=== PATIENT | male | born 1965 | race Caucasian/White ===

== ENCOUNTER → 2017-02-17 | Outpatient (CLI) | payer OTHER | LOC: RAD 10:56 | PROVIDERS: ATTEND Family Medicine | DX: M25.512 Pain in left shoulder (principal) ==

== ENCOUNTER 2018-02-07 13:17 | Day surgery (SDC) | payer OTHER ==
[2018-02-01 10:42] LABS: HEMATOCRIT 43.3 % (37.9-51.0); MEAN CORPUSCULAR HEMOGLOBIN 31.4 pg (27.0-33.4); MEAN CORPUSCULAR HGB CONC 34.6 g/dL (32.0-36.0); MEAN CORPUSCULAR VOLUME 91 fl (80-97); PLATELET COUNT 232 10^3/uL (150-450); RED BLOOD COUNT 4.77 10^6/uL (4.35-5.55); RED CELL DISTRIBUTION WIDTH 14.1 % (11.5-14.0); WHITE BLOOD COUNT 5.1 10^3/uL (4.0-10.5)
--- NOTE | 2018-02-01 23:15 | EKG REPORT ---
SEVERITY:- NORMAL ECG - SINUS RHYTHM : Confirmed by: Conchita Chawla 01-Feb-2018 23:15:21
[~2018-02-07 13:17] MED LIST: ACETAMINOPHEN 325 MG TABLET PO PRN; CEFAZOLIN 1 GM/D5W RTU 1 GM/50 ML RTUPB IV PRN; LACTATED RINGERS 1000 ML IV PRN; SUCCINYLCHOLINE CHLORIDE INJ 200 MG/10 ML VIAL ONE
[2018-02-07] MEDS ORDERED: BUPIVACAINE HCL 0.25 % INJ/PF (2.5 MG/1 ML) 30 ML VIAL ONE (14:40)
[2018-02-07] MEDS ORDERED: BUPIVACAINE INJ/PF LIPOSOME/PF 266 MG/20 ML SDV ONE (14:40)
[2018-02-07] MEDS ORDERED: FENTANYL CITRATE INJ/PF 250 MCG/5 ML AMPULE ONE (15:21)
[2018-02-07] MEDS ORDERED: MIDAZOLAM 2 MG/2 ML INJ ONE (15:21)
[2018-02-07] MEDS ORDERED: DEXAMETHASONE SOD PHOSPHATE INJ 4 MG/1 ML VIAL ONE (15:22)
[2018-02-07] MEDS ORDERED: PROPOFOL INJ 200 MG/20 ML VIAL IV ONE (15:22)
[2018-02-07] MEDS ORDERED: ONDANSETRON HCL INJ/PF 4 MG/2 ML SDV ONE (15:22)
[2018-02-07] MEDS ORDERED: ACETAMINOPHEN 100 ML IV ONE (15:22)
[2018-02-07] MEDS ORDERED: FENTANYL CITRATE INJ/PF 100 MCG/2 ML AMPUL IV PRN ×3 (16:07)
[2018-02-07] MEDS ORDERED: OXYCODONE-ACETAMINOPHEN 5-325 MG TABLET PO PRN ×3 (16:07→17:13)
[2018-02-07] MEDS ORDERED: PROMETHAZINE HCL INJ 25 MG/1 ML VIAL IV PRN ×2 (16:07)
[2018-02-07] MEDS ORDERED: MEPERIDINE HCL/PF INJ 25 MG/1 ML DISP.SYRIN IV PRN (16:07)
[2018-02-07] MEDS ORDERED: DIPHENHYDRAMINE HCL 50 MG/ML VIAL IV PRN (16:07)
[2018-02-07] MEDS ORDERED: EPHEDRINE SULFATE INJ 50 MG/1 ML AMPULE ONE (16:24)
--- NOTE | 2018-02-07 17:13 | Discharge Summary ---
Discharge Summary (SDC) - Discharge Final Diagnosis: Left indirect inguinal hernia Date of Surgery: 02/07/18 Discharge Date: 02/07/18 Condition: Stable Treatment or Instructions: [facility] [address], [place] [address] Discharge Instructions: Open Abdominal Procedures (Hernia, Bowel Surgery) 1.General Information: a. DO NOT DRIVE a car or operative machinery for 1-2 weeks or as long as taking Narcotic pain medication. b. DO NOT consume alcohol, tranquilizers, sleeping medication, or any non- prescribed medication for 24 hours unless approved by your doctor or as long as taking pain medication. c. DO NOT make important decisions or sign any important papers for the first 24 hours after surgery. d. When discharged home the same day as surgery have a responsible person with you the first night. 2.Activity Restriction: 8 weeks; a. Avoid heavy lifting (> 10-15 lbs), straining abdominal muscles and sports, mowing lawn, vacuum vehicle and equipment cleaner and bending over a lot. b. Walking is important to avoid blood clots in the legs and deep breathing can prevent pneumonia. c. If it fine to go for walks, up and down steps, and ride in a car. 3.Treatment: a. You may shower in 24 hours. Leave skin glue intact, but you should not bathe in a tub or go swimming for 2 weeks. c. Do not use oils, powders, or lotion on your incision. 4.Medications: a. You may take narcotic prescription tablets for pain if needed, one every 6 hours (Toradol_). c. You may resume all normal medications unless a change is specified by your doctors. d. Antibiotic Therapy if needed ( NONE) ___ 5.Diet: a. If going home the same day as surgery start with clear liquids, and if you do well then advance to normal foods low inf fat and protein. Smaller portion size may be flowers the first night. b. When discharged after hospital stay you may resume a normal diet. 6.Notify Physician If: a. Pain is not relieved by pain medication b. Persistent nausea and vomiting c. Chills, fever (above 101) d. Persistent bleeding or swelling at the operative site e. Unable to urinate for 6-8 hours f. Increased redness, drainage, or foul smelling discharge from incision 7. Follow Up Care: a. Please call our office to schedule an appointment with your doctor for 2 weeks. In the event of any postoperative problems or questions you may call our office during business hours or the On-Call surgeon through the hobbing press operator at [facility]. [facility] [phone] [facility] [phone] (Ask for the surgeon associate professor of communication) b. I understand the instructions for my postoperative care as described above and a copy has been given to me. _ Witness Patient/Significant Other Date Prescriptions: Ketorolac Tromethamine [Toradol 10 mg Tablet] 10 mg PO Q6HP PRN #20 tablet PRN Reason: Discharge Diet: As Tolerated Discharge Activity: No Lifting Over 10 Pounds, Walk Frequently Report the Following to Your Physician Immediately: Nausea, Vomiting, Fever over 101 Degrees, Unusual Bleeding, Redness, Drainage-Foul Smelling
[2018-02-07] MEDS ORDERED: ONDANSETRON HCL INJ/PF 4 MG/2 ML SDV IV PRN (17:14)
--- NOTE | 2018-02-07 17:32 | Operative Report ---
Operative Report DATE OF SURGERY: 02/07/18 PREOPERATIVE DIAGNOSIS: Left inguinal hernia POSTOPERATIVE DIAGNOSIS: Same, indirect,dual component OPERATION: Left inguinal exploration, open, with herniorrhaphy using [facility] Ethicon Prolene hernia system SURGEON: KIYA GRAYSON 1ST SET ILLUSTRATOR: ALEE CASAREZ ANESTHESIA: GA TISSUE REMOVED OR ALTERED: None COMPLICATIONS: None ESTIMATED BLOOD LOSS: Scant INTRAOPERATIVE FINDINGS: See below PROCEDURE: The patient was seen in the preop holding area with a left inguinal area was marked. The patient was then taken to the main operating room and general anesthesia was induced. Left inguinal area abdomen previously clipped, was exposed, prepped and draped sterile fashion including the genitalia. Surgical plan surgical timeout conducted. Landmarks were identified, skin anesthetized with quarter percent Marcaine. A standard left inguinal herniorrhaphy incision was the #15 blade. Subcutaneous tissue and Tomer's fascia divided with electrocautery. The predictable, superficial vein was ligated and divided. The external oblique aponeurosis was anesthetized with quarter percent Marcaine, then open along the direction of its fibers. The ilioinguinal nerve was identified and spared throughout the entire dissection. Superior and inferior fascial flaps were elevated. Since of the inguinal canal were now interrogated mobilized and isolated. The patient was found to have 2 large lipomatous masses emanating from the lateral side of the inguinal canal. Cord structures including vas deferens and pampiniform plexus and associated vessels were surrounded with Jackeline drain. The fatty masses were isolated from each other and found to originate from the internal ring. The lateral mass was approximately 3 x 4 x 6 cm, consisting of retroperitoneal fat. More medial mass was a hernia, thin walled, consisting of peritoneum with relapsing fatty tissue. Both of these structures were able to be easily reduced into the retroperitoneum. There was no evidence of incarcerated bowel. This left us with a moderately enlarged deep internal ring. Again we were lateral to the inferior epigastric vessels. I used this pocket created by the prolapsing tissue, now reduced, to further develop the retroperitoneal Whitaker for deployment of the mesh. This was done bluntly and using a small sponge. Once a satisfactory pocket being created, we brought onto the field a non- [facility] large prosthetic mesh, deployed the inner component into the retroperitoneal space splaying it out in a circumferential fashion. The external component was now trimmed slightly to the appropriate configuration to re-create the floor of the inguinal canal. Using 0 PDS suture , the mesh was secured at approximately 8 points in circumferential fashion to the surrounding fascia including Poupart's ligament lacunar ligament and conjoined tendon. A U was created at the 12 o'clock position to accommodate the cord structures and the ilioinguinal nerve. At this time the patient began waking up and we had to wait until anesthesia got the patient back down satisfactorily. We closed the external oblique aponeurosis with 2-0 Vicryl, Tomer's fascia with 3-0 Vicryl skin with 3-0 Vicryl ,Dermabond glue. Tolerated procedure well, extubated, and taken recovery room in stable condition. The physician review assistant, Ms. Perez, provided assistance during this case by: Assisting retracting tissue, instillation of local anesthesia and closure of skin incisions.
[2018-02-07 19:45] VITALS: BP 147/101
== END 2018-02-07 19:40 | disposition home or self-care (01) ==
LOC: OROUT 13:17
PROVIDERS: ATTEND Surgery
DX: K40.90 Unilateral inguinal hernia, without obstruction or gangrene, not specified as recurrent (principal); I10 Essential (primary) hypertension; K21.9 Gastro-esophageal reflux disease without esophagitis; Z79.899 Other long term (current) drug therapy
CPT/HCPCS: 93005; 36415; 85027; 93010; 49505; C1781; J2250; J0690; J1100; J3490; J3010; J0330; J2405; J2704; J0131; C9290; 830

== ENCOUNTER 2019-04-15 09:34 | Emergency (ER) | payer OTHER ==
[2019-04-15] MEDS ORDERED: ONDANSETRON 4 MG TAB.RAPDIS PO ONE (10:05)
--- NOTE | 2019-04-15 10:05 | ER Document Report ---
ED Medical Screen (RME) - General Chief Complaint: Testicular Problem Stated Complaint: TESTICULAR PAIN Time Seen by Provider: 04/15/19 10:01 Mode of Arrival: Ambulatory Information source: Patient Notes: Patient presents complaining of left testicular swelling for the past year after having hernia surgery. Patient states that the swelling has gradually worsened over the past 2 to 3 weeks and has become painful. Patient does report nausea. No vomiting. Patient denies any urinary symptoms or penile discharge. Patient is concerned about a worsening of a hernia. I have greeted and performed a rapid initial assessment of this patient. A comprehensive ED assessment and evaluation of the patient, analysis of test results and completion of the medical decision making process will be conducted by additional ED providers. TRAVEL OUTSIDE OF THE [place] IN LAST 30 DAYS: No - Related Data Allergies/Adverse Reactions: No Known Allergies Allergy (Verified 04/15/19 09:37) Past Medical History - Past Medical History Cardiac Medical History: Reports: Hx Hypertension Denies: Hx Coronary Artery Disease, Hx Heart Attack Pulmonary Medical History: Denies: Hx Asthma, Hx Bronchitis, Hx COPD, Hx Pneumonia, Hx Tuberculosis Neurological Medical History: Denies: Hx Cerebrovascular Accident, Hx Seizures Musculoskeltal Medical History: Denies Hx Arthritis, Reports Hx Gout Past Surgical History: Reports: Hx Abdominal Surgery - Umbilical hernia repair, Hx Inguinal Hernia, Hx Umbilical Hernia - Immunizations Hx Diphtheria, Pertussis, Tetanus Vaccination: Yes History of Influenza Vaccine for 07/2017 - 12/2017 Season: No Physical Exam - Vital signs Vitals: Temp Pulse Resp BP Pulse Ox 97.8 F 65 16 144/86 H 96 04/15/19 09:42 04/15/19 09:42 04/15/19 09:42 04/15/19 09:42 04/15/19 09:42 - General General appearance: Appears well, Alert In distress: None - Abdominal Tenderness: Nontender Course - Vital Signs Vital signs: Temp Pulse Resp BP Pulse Ox 97.8 F 65 16 144/86 H 96 04/15/19 09:42 04/15/19 09:42 04/15/19 09:42 04/15/19 09:42 04/15/19 09:42
[2019-04-15 10:47] LABS: ABSOLUTE BASOPHILS # (AUTO) 0.1 10^3/uL (0.0-0.2); ABSOLUTE EOSINOPHILS # (AUTO) 0.1 10^3/uL (0.0-0.6); ABSOLUTE LYMPHOCYTES (AUTO) 1.5 10^3/uL (0.5-4.7); ABSOLUTE MONOCYTES (AUTO) 0.4 10^3/uL (0.1-1.4); BASOPHILS % (AUTO) 1.1 % (0-2); EOSINOPHILS % (AUTO) 1.5 % (0-6); HEMATOCRIT 39.2 % (37.9-51.0); HEMOGLOBIN 13.7 g/dL (13.5-17.0); LYMPHOCYTES % (AUTO) 29.7 % (13-45); MEAN CORPUSCULAR HEMOGLOBIN 31.3 pg (27.0-33.4); MEAN CORPUSCULAR HGB CONC 34.9 g/dL (32.0-36.0); MEAN CORPUSCULAR VOLUME 90 fl (80-97); MONOCYTES % (AUTO) 8.3 % (3-13); PLATELET COUNT 200 10^3/uL (150-450); RED BLOOD COUNT 4.37 10^6/uL (4.35-5.55); SEGMENTED NEUTROPHILS % (AUTO) 59.4 % (42-78); TOTAL CELLS COUNTED % (AUTO) 100 %
[2019-04-15 11:05] LABS: APPEARANCE,URINE CLEAR; BILIRUBIN,URINE NEGATIVE (NEGATIVE); COLOR,URINE YELLOW; GLUCOSE, URINE NEGATIVE (NEGATIVE); KETONES,URINE NEGATIVE (NEGATIVE); LEUKOCYTE ESTERASE,URINE NEGATIVE (NEGATIVE); NITRITE,URINE NEGATIVE (NEGATIVE); PROTEIN,URINE NEGATIVE (NEGATIVE); URINE SPECIFIC GRAVITY 1.025; UROBILINOGEN,URINE NEGATIVE mg/dL (<2.0)
[2019-04-15 11:06] LABS: ALANINE AMINOTRANSFERASE 82 U/L (21-72); ALBUMIN 4.5 g/dL (3.5-5.0); ALKALINE PHOSPHATASE 70 U/L (38-126); ANION GAP 9 (5-19); ASPARTATE AMINO TRANSFERASE 47 U/L (17-59); BILIRUBIN,DIRECT 0.4 mg/dL (0.0-0.4); BILIRUBIN,TOTAL 0.6 mg/dL (0.2-1.3); BLOOD UREA NITROGEN 17 mg/dL (7-20); CALCIUM 9.5 mg/dL (8.4-10.2); CARBON DIOXIDE 25 mmol/L (22-30); CHLORIDE 106 mmol/L (98-107); GLUCOSE 106 mg/dL (75-110); POTASSIUM 4.6 mmol/L (3.6-5.0); SODIUM 139.9 mmol/L (137-145); TOTAL PROTEIN 7.3 g/dL (6.3-8.2)
--- NOTE | 2019-04-15 12:44 | RADIOLOGY REPORT (SQ) ---
EXAM DESCRIPTION: U/S SCROTUM W/DOPPLER COMPLETED DATE/TIME: 04/15/2019 12:24 pm REASON FOR STUDY: left testicular pain,swelling COMPARISON: 03/11/2015 TECHNIQUE: Static and realtime eldridge scale imaging of the scrotum and testes. Selected color Doppler and spectral images recorded to document blood flow. LIMITATIONS: None. FINDINGS: RIGHT: TESTICLE: Normal size, 4.3 x 3.3 x 3 cm. Normal echotexture. Normal blood flow. No mass. EPIDIDYMIS: Normal, 13 mm. HYDROCELE OR VARICOCELE: Small hydrocele. HERNIA OR EXTRA-TESTICULAR MASS: No. OTHER: No other significant finding. LEFT: TESTICLE: Normal size, 5.1 x 3 x 3.5 cm. Normal echotexture. Normal blood flow. No mass. EPIDIDYMIS: Poorly seen. HYDROCELE OR VARICOCELE: Large left hydrocele, 11.5 x 5.7 x 6.4 cm. HERNIA OR EXTRA-TESTICULAR MASS: No. OTHER: No other significant finding. IMPRESSION: Large left hydrocele. Small right hydrocele. Left epididymis is poorly seen because of the large hydrocele on the left. TECHNICAL DOCUMENTATION: JOB ID: [id number] [employer]- All Rights Reserved Reading location - IP/workstation name: [email or web address]
[2019-04-15 13:21] VITALS: BP 118/80
[2019-04-15 13:34] LABS: CHLAM PCR NOT DETECTED (NOT DETECT)
--- NOTE | 2019-04-17 23:08 | ER Document Report ---
Entered by LATOSHA STEVENS SCRIBE 04/15/19 1246 Acting as scribe for:NAYAN SANTIAGO MD ED General - General Chief Complaint: Testicular Problem Stated Complaint: TESTICULAR PAIN Time Seen by Provider: 04/15/19 10:01 Primary Care Provider: [facility] [Provider Group] - 04/15/19 (Call today to schedule an appointment in the next several days.) [facility] [[facility] - Follow up as needed Mode of Arrival: Ambulatory Notes: Patient is a 53-year-old male presenting to the emergency department complaining of testicular swelling. Patient states that he has had swelling for a year now but that it has gotten excessively worse the past few weeks. Patient states that the inflammation is mainly of his left testicle, but his right is also swelling. TRAVEL OUTSIDE OF THE [place] IN LAST 30 DAYS: No - Related Data Allergies/Adverse Reactions: No Known Allergies Allergy (Verified 04/15/19 09:37) Past Medical History - General Information source: Patient - Social History Smoking Status: Never Smoker Cigarette use (# per day): No Chew tobacco use (# tins/day): No Frequency of alcohol use: Rare Drug Abuse: None Family History: Reviewed & Not Pertinent Patient has suicidal ideation: No Patient has homicidal ideation: No - Past Medical History Cardiac Medical History: Reports: Hx Hypertension GI Medical History: Reports: Hx Gastroesophageal Reflux Disease Musculoskeletal Medical History: Reports Hx Gout Past Surgical History: Reports: Hx Abdominal Surgery - Umbilical hernia repair, Hx Inguinal Hernia, Hx Umbilical Hernia - Immunizations Hx Diphtheria, Pertussis, Tetanus Vaccination: Yes Review of Systems - Review of Systems Constitutional: No symptoms reported EENT: No symptoms reported Cardiovascular: No symptoms reported Respiratory: No symptoms reported Gastrointestinal: No symptoms reported Genitourinary: No symptoms reported Male Genitourinary: See HPI, Testicular pain Musculoskeletal: No symptoms reported Skin: No symptoms reported Hematologic/Lymphatic: No symptoms reported Neurological/Psychological: No symptoms reported -: Yes All other systems reviewed and negative Physical Exam - Vital signs Vitals: Temp Pulse Resp BP Pulse Ox 97.8 F 65 16 144/86 H 96 04/15/19 09:42 04/15/19 09:42 04/15/19 09:42 04/15/19 09:42 04/15/19 09:42 - Notes Notes: PHYSICAL EXAMINATION: GENERAL: Well-appearing, well-nourished and in no acute distress. HEAD: Atraumatic, normocephalic. EYES: Pupils equal round and reactive to light, extraocular movements intact, sclera anicteric, conjunctiva are normal. ENT: nares patent, oropharynx clear without exudates. Moist mucous membranes. NECK: Normal range of motion, supple without lymphadenopathy LUNGS: Breath sounds clear to auscultation bilaterally and equal. No wheezes rales or rhonchi. HEART: Regular rate and rhythm without murmurs ABDOMEN: Soft, nontender, normoactive bowel sounds. No guarding, no rebound. No masses appreciated. GENITALS: Large left hemiscrotal swelling, firmness, tender, no skin induration noted. Physical exam is consistent with the ultrasound showing a large left hydrocele. EXTREMITIES: Normal range of motion, no pitting or edema. No cyanosis. NEUROLOGICAL: Cranial nerves grossly intact. Normal speech, normal gait. Normal sensory, motor, and reflex exams. PSYCH: Normal mood, normal affect. SKIN: Warm, Dry, normal turgor, no rashes or lesions noted. Course - Vital Signs Vital signs: Temp Pulse Resp BP Pulse Ox 98.0 F 66 16 118/80 100 04/15/19 13:20 04/15/19 13:20 04/15/19 13:20 04/15/19 13:20 04/15/19 13:20 - Laboratory Result Diagrams: 04/15/19 10:14 04/15/19 10:14 Laboratory results interpreted by me: 04/15/19 10:14 ALT 82 H - Diagnostic Test Radiology reviewed: Image reviewed, Reports reviewed - Scrotal ultrasound shows a small right hydrocele. A very large left hydrocele that obscures the left epididymis. Discharge - Discharge Clinical Impression: Left hydrocele, Acute pain in scrotum Condition: Stable Disposition: HOME, SELF-CARE Additional Instructions: Hydrocele You have been diagnosed as having a hydrocele. The sac that holds the testicles is called the scrotum. A hydrocele is usually a painless collection of fluid in the membrane that covers the testicle(s). This may be present at or develop later on in life. The cause is usually unknown. In infants a hydrocele can be due to a miscommunication of the fluid surrounding the testes. In adults a hydrocele may form due to injury or inflammation of surrounding structures. Most hydroceles require no treatment, and usually resolve on their own. However, sometimes surgical intervention is recommended for recurrent, or for unusually large hydroceles. The surgery to fix a hydrocele is a minor procedure and usually takes about 1 and 1/2 hours. Take medications as prescribed. Continue taking your regular medications, including the meloxicam. Use good scrotal support. Try soaking in warm water a few times daily. Avoid prolonged standing, walking, and any heavy lifting or straining. Call [facility] today to schedule an appointment in the office for surgical consultation. RETURN TO THE EMERGENCY ROOM IF ANY NEW OR WORSENING SYMPTOMS. Prescriptions: Doxycycline Hyclate 100 mg PO BID #20 tablet. Oxycodone HCl/Acetaminophen [Percocet 5-325 mg Tablet] 1 tab PO ASDIR PRN #15 tablet PRN Reason: Referrals: [facility] [Primary [facility]] - Follow up as needed [facility] [Provider Group] - 04/15/19 (Call today to schedule an appointment in the next several days.) Scribe Attestation: 04/15/19 12:46 I personally performed the services described in the documentation, reviewed and edited the documentation which was dictated to the scribe in my presence, and it accurately records my words and actions. I personally performed the services described in the documentation, reviewed and edited the documentation which was dictated to the scribe in my presence, and it accurately records my words and actions.
== END 2019-04-15 13:21 | disposition home or self-care (01) ==
LOC: ER 09:34
DX: N50.82 Scrotal pain (principal); N43.3 Hydrocele, unspecified; N50.89 Other specified disorders of the male genital organs; I10 Essential (primary) hypertension; K21.9 Gastro-esophageal reflux disease without esophagitis
CPT/HCPCS: 99284; 36415; 85025; 80053; 81001; 87491; 87591; 76870; 93976; S0119

== ENCOUNTER 2019-06-13 22:31 | Emergency (ER) | payer OTHER ==
--- NOTE | 2019-06-14 01:09 | ER Document Report ---
ED Medical Screen (RME) - General Chief Complaint: Abdominal Problem Stated Complaint: POST SURGICAL PROBLEM Time Seen by Provider: 06/14/19 00:57 Primary Care Provider: [facility]WAB[facility] [Primary Care Provider] - Follow up as needed Mode of Arrival: Ambulatory Information source: Patient Notes: 53-year-old male presented to ED for complaint of left inguinal pain. He states he has had inguinal hernia repairs several times last time with mesh. He states when the pain started somewhat could hear it pop at the time. He states he has had bulges in the past but does not have one at this time. Patient is alert oriented respirations regular and unlabored speaking in full sentences. He states he always has a lot of pain. I have greeted and performed a rapid initial assessment of this patient. A comprehensive ED assessment and evaluation of the patient, analysis of test results and completion of medical decision making process will be conducted by an additional ED providers. TRAVEL OUTSIDE OF THE [place] IN LAST 30 DAYS: No - Related Data Allergies/Adverse Reactions: No Known Allergies Allergy (Verified 06/14/19 00:59) Past Medical History - Social History Chew tobacco use (# tins/day): No Frequency of alcohol use: Occasional Drug Abuse: None - Past Medical History Cardiac Medical History: Reports: Hx Hypertension Pulmonary Medical History: Reports: None EENT Medical History: Reports: None Neurological Medical History: Reports: None Endocrine Medical History: Reports: None Renal/ Medical History: Reports: None Malignancy Medical History: Reports None GI Medical History: Reports: Hx Gastroesophageal Reflux Disease, Other - Previous inguinal hernia repairs Musculoskeltal Medical History: Reports Hx Gout, Reports Hx Musculoskeletal Deformity, Reports Hx Musculoskeletal Trauma Skin Medical History: Reports None Psychiatric Medical History: Reports: None Traumatic Medical History: Reports: None Infectious Medical History: Reports: None Past Surgical History: Reports: Hx Abdominal Surgery - Umbilical hernia repair, Hx Inguinal Hernia, Hx Orthopedic Surgery - Neck surgery for disc, Hx Umbilical Hernia - Immunizations Hx Diphtheria, Pertussis, Tetanus Vaccination: Yes History of Influenza Vaccine for 07/2017 - 12/2017 Season: No Physical Exam - Vital signs Vitals: Temp Pulse Resp BP Pulse Ox 98.0 F 73 18 167/79 H 96 06/13/19 22:36 06/13/19 22:36 06/13/19 22:36 06/13/19 22:36 06/13/19 22:36 Course - Vital Signs Vital signs: Temp Pulse Resp BP Pulse Ox 98.0 F 73 18 167/79 H 96 06/13/19 22:36 06/13/19 22:36 06/13/19 22:36 06/13/19 22:36 06/13/19 22:36 Doctor's Discharge - Discharge Referrals: [facility] [[facility]] - Follow up as needed
[2019-06-14 01:25] LABS: ABSOLUTE BASOPHILS # (AUTO) 0.1 10^3/uL (0.0-0.2); ABSOLUTE EOSINOPHILS # (AUTO) 0.1 10^3/uL (0.0-0.6); ABSOLUTE LYMPHOCYTES (AUTO) 2.3 10^3/uL (0.5-4.7); ABSOLUTE MONOCYTES (AUTO) 0.5 10^3/uL (0.1-1.4); ABSOLUTE NEUT (AUTO) 3.6 10^3/uL (1.7-8.2); BASOPHILS % (AUTO) 1.1 % (0-2); EOSINOPHILS % (AUTO) 1.7 % (0-6); HEMATOCRIT 37.9 % (37.9-51.0); HEMOGLOBIN 13.1 g/dL (13.5-17.0); LYMPHOCYTES % (AUTO) 34.3 % (13-45); MEAN CORPUSCULAR HEMOGLOBIN 31.4 pg (27.0-33.4); MEAN CORPUSCULAR HGB CONC 34.5 g/dL (32.0-36.0); MEAN CORPUSCULAR VOLUME 91 fl (80-97); PLATELET COUNT 201 10^3/uL (150-450); RED BLOOD COUNT 4.17 10^6/uL (4.35-5.55); RED CELL DISTRIBUTION WIDTH 14.2 % (11.5-14.0); SEGMENTED NEUTROPHILS % (AUTO) 54.9 % (42-78); TOTAL CELLS COUNTED % (AUTO) 100 %; WHITE BLOOD COUNT 6.6 10^3/uL (4.0-10.5)
[2019-06-14 01:45] LABS: ALBUMIN 4.6 g/dL (3.5-5.0); ALKALINE PHOSPHATASE 64 U/L (38-126); ANION GAP 12 (5-19); ASPARTATE AMINO TRANSFERASE 51 U/L (17-59); BILIRUBIN,DIRECT 0.5 mg/dL (0.0-0.4); BILIRUBIN,TOTAL 0.5 mg/dL (0.2-1.3); BLOOD UREA NITROGEN 14 mg/dL (7-20); CALCIUM 9.6 mg/dL (8.4-10.2); CARBON DIOXIDE 25 mmol/L (22-30); CHLORIDE 102 mmol/L (98-107); GLUCOSE 208 mg/dL (75-110); POTASSIUM 4.3 mmol/L (3.6-5.0); TOTAL PROTEIN 7.5 g/dL (6.3-8.2)
[2019-06-14 04:12] LABS: APPEARANCE,URINE CLEAR; BILIRUBIN,URINE NEGATIVE (NEGATIVE); COLOR,URINE YELLOW; GLUCOSE, URINE NEGATIVE (NEGATIVE); KETONES,URINE NEGATIVE (NEGATIVE); LEUKOCYTE ESTERASE,URINE NEGATIVE (NEGATIVE); NITRITE,URINE NEGATIVE (NEGATIVE); PROTEIN,URINE NEGATIVE (NEGATIVE); URINE SPECIFIC GRAVITY 1.023; UROBILINOGEN,URINE NEGATIVE mg/dL (<2.0)
--- NOTE | 2019-06-14 04:21 | RADIOLOGY REPORT (SQ) ---
CLINICAL HISTORY: Left inguinal pain hx of inguinal hernia repair COMPARISON: None. TECHNIQUE: US PELVIS on 06/14/2019 1:01 AM CDT FINDINGS: There is presumed inguinal hernia repair mesh in the left inguinal region. There is no focal abnormality otherwise. IMPRESSION: No left inguinal abnormality other than hernia repair mesh.
--- NOTE | 2019-06-14 04:31 | ER Document Report ---
ED General - General Chief Complaint: Abdominal Problem Stated Complaint: POST SURGICAL PROBLEM Time Seen by Provider: 06/14/19 00:57 Primary Care Provider: CHANELLE,KWABENA [Primary Care Provider] - Follow up as needed Mode of Arrival: Ambulatory Notes: RME NOTE: 53-year-old male presented to ED for complaint of left inguinal pain. He states he has had inguinal hernia repairs several times last time with mesh. He states when the pain started somewhat could hear it pop at the time. He states he has had bulges in the past but does not have one at this time. Patient is alert oriented respirations regular and unlabored speaking in full sentences. He states he always has a lot of pain. My HPI: Upon arrival to the room to evaluate the patient he has snoring. He is easily arousable to verbal stimuli. Patient states at this point time he does not have any pain. Patient states he was concerned because when he lifted something he did "hear a pop." Patient's denying any abdominal pain or other complaints at this time. TRAVEL OUTSIDE OF THE [place] IN LAST 30 DAYS: No - Related Data Allergies/Adverse Reactions: No Known Allergies Allergy (Verified 06/14/19 00:59) Past Medical History - General Information source: Patient - Social History Smoking Status: Never Smoker Chew tobacco use (# tins/day): No Frequency of alcohol use: Occasional Drug Abuse: None Family History: Reviewed & Not Pertinent Patient has suicidal ideation: No Patient has homicidal ideation: No - Past Medical History Cardiac Medical History: Reports: Hx Hypertension Pulmonary Medical History: Reports: None EENT Medical History: Reports: None Neurological Medical History: Reports: None Endocrine Medical History: Reports: None Renal/ Medical History: Reports: None Malignancy Medical History: Reports None GI Medical History: Reports: Hx Gastroesophageal Reflux Disease, Other - Previous inguinal hernia repairs Musculoskeletal Medical History: Reports Hx Gout, Reports Hx Musculoskeletal Deformity, Reports Hx Musculoskeletal Trauma Skin Medical History: Reports None Psychiatric Medical History: Reports: None Traumatic Medical History: Reports: None Infectious Medical History: Reports: None Past Surgical History: Reports: Hx Abdominal Surgery - Umbilical hernia repair, Hx Inguinal Hernia, Hx Orthopedic Surgery - Neck surgery for disc, Hx Umbilical Hernia - Immunizations Hx Diphtheria, Pertussis, Tetanus Vaccination: Yes Review of Systems - Review of Systems Constitutional: denies: Fever EENT: No symptoms reported Cardiovascular: No symptoms reported Respiratory: No symptoms reported Gastrointestinal: See HPI Genitourinary: No symptoms reported Male Genitourinary: No symptoms reported Musculoskeletal: No symptoms reported Skin: No symptoms reported Hematologic/Lymphatic: No symptoms reported Neurological/Psychological: No symptoms reported Physical Exam - Vital signs Vitals: Temp Pulse Resp BP Pulse Ox 98.0 F 73 18 167/79 H 96 06/13/19 22:36 06/13/19 22:36 06/13/19 22:36 06/13/19 22:36 06/13/19 22:36 - Notes Notes: GENERAL: Alert, interacts well. No acute distress. HEAD: Normocephalic, atraumatic. EYES: Pupils equal, round, and reactive to light. Extraocular movements intact. ENT: Oral mucosa moist, tongue midline. NECK: Full range of motion. Supple. Trachea midline. LUNGS: Clear to auscultation bilaterally, no wheezes, rales, or rhonchi. No respiratory distress. HEART: Regular rate and rhythm. No murmur ABDOMEN: Soft, non-tender. Non-distended. Bowel sounds present in all 4 quadrants. No pelvic pain noted bilaterally. No abdominal pain noted EXTREMITIES: Moves all 4 extremities spontaneously. No edema, normal radial and dorsalis pedis pulses bilaterally. No cyanosis. BACK: no cervical, thoracic, lumbar midline tenderness. No saddle anesthesia, normal distal neurovascular exam. NEUROLOGICAL: Alert and oriented x3. Normal speech. cranial nerves II through XII grossly intact. PSYCH: Normal affect, normal mood. SKIN: Warm, dry, normal turgor. No rashes or lesions noted. Genitalia: Testicles nonerythematous, nonswollen bilateral, nonpainful bilaterally. Sara Watkins RN. Course - Re-evaluation Re-evalutation: 06/14/19 04:29 Laboratory 06/14/19 06/14/19 06/14/19 01:05 01:05 01:05 WBC 6.6 RBC 4.17 L Hgb 13.1 L Hct 37.9 MCV 91 MCH 31.4 MCHC 34.5 RDW 14.2 H Plt Count 201 Lymph % (Auto) 34.3 [place] % (Auto) 8.0 Eos % (Auto) 1.7 Baso % (Auto) 1.1 Absolute Neuts (auto) 3.6 Absolute Lymphs (auto) 2.3 Absolute Monos (auto) 0.5 Absolute Eos (auto) 0.1 Absolute Basos (auto) 0.1 Seg Neutrophils % 54.9 Sodium 138.6 Potassium 4.3 Chloride 102 Carbon Dioxide 25 Anion Gap 12 BUN 14 Creatinine 1.02 Est GFR ( Amer) > 60 Est GFR (MDRD) Non-Af > 60 Glucose 208 H Calcium 9.6 Total Bilirubin 0.5 Direct Bilirubin 0.5 H Neonat Total Bilirubin Not Reportable Neonat Direct Bilirubin Not Reportable Neonat Indirect Bili Not Reportable AST 51 ALT 75 Alkaline Phosphatase 64 Total Protein 7.5 Albumin 4.6 Urine Color YELLOW Urine Appearance CLEAR Urine pH 6.0 Ur Specific [place] 1.023 Urine Protein NEGATIVE Urine Glucose (UA) NEGATIVE Urine Ketones NEGATIVE Urine Blood NEGATIVE Urine Nitrite NEGATIVE Urine Bilirubin NEGATIVE Urine Urobilinogen NEGATIVE Ur Leukocyte Esterase NEGATIVE Urine WBC (Auto) 0 Urine RBC (Auto) 1 Squamous Epi Cells Auto <1 Urine Mucus (Auto) RARE Urine Ascorbic Acid NEGATIVE Pelvis Ultrasound 06/14/19 01:01 IMPRESSION: No left inguinal abnormality other than hernia repair mesh. Upon my assessment patient is sleeping soundly. Easily arousable to verbal stimuli. Patient's denying any complaints upon my assessment. Patient's ultr asound reveals no left inguinal abnormality which is where patient was complaining of pain to RME provider. Discussed close follow-up with primary care provider and inevitably surgery. At this time will discharge with return precautions and follow-up recommendations. Verbal discharge instructions given a the bedside and opportunity for questions given. Medication warnings reviewed. Patient is in agreement with this plan and has verbalized understanding of return precautions and the need for primary care follow-up in the next 24-72 hours. This medical record was dictated with voice recognizing software. There may be grammatical, syntax errors that are unintended. - Vital Signs Vital signs: Temp Pulse Resp BP Pulse Ox 98.0 F 73 18 167/79 H 96 06/13/19 22:36 06/13/19 22:36 06/13/19 22:36 06/13/19 22:36 06/13/19 22:36 - Laboratory Result Diagrams: 06/14/19 01:05 06/14/19 01:05 Laboratory results interpreted by me: 06/14/19 06/14/19 01:05 01:05 RBC 4.17 L Hgb 13.1 L RDW 14.2 H Glucose 208 H Direct Bilirubin 0.5 H Discharge - Discharge Clinical Impression: Groin pain Qualifiers: Laterality: left Qualified Code(s): R10.32 - Left lower quadrant pain Condition: Stable Disposition: HOME, SELF-CARE Instructions: Hernia ([facility]) Additional Instructions: As we discussed you have been seen and treated in the emergency department for pain in your left groin. Your ultrasound reveals no signs of an incarcerated hernia. Please make sure he follow-up with your primary care provider in the surgeon that performed your surgery for continued care. Please return to the emergency room for any further concerns. Referrals: [facility] [Primary [facility]] - Follow up as needed
[2019-06-14 05:05] VITALS: BP 128/77
== END 2019-06-14 05:06 | disposition home or self-care (01) ==
LOC: ER 22:31
DX: R10.32 Left lower quadrant pain (principal); I10 Essential (primary) hypertension
CPT/HCPCS: 36415; 76856; 80053; 81001; 85025; 93976; 99283

== ENCOUNTER → 2020-08-27 | Outpatient (CLI) | payer OTHER ==
--- NOTE | 2020-08-27 11:12 | RADIOLOGY REPORT (SQ) ---
EXAM DESCRIPTION: MRI ABDOMEN COMBO IMAGES COMPLETED DATE/TIME: 08/27/2020 8:42 am REASON FOR STUDY: PANCREATIC CYST/HEPATIC CYST COMPARISON: None. TECHNIQUE: Multiplanar multisequence imaging performed without and with contrast including sagittal, axial and coronal T2, axial T1, axial gradient fat sat T1, axial, sagittal and coronal fat sat T1 po st contrast. CONTRAST TYPE AND DOSE: 20 mL Prohance. RENAL FUNCTION: Not indicated. ACR Type II contrast agent associated with few, if any, unconfounded cases of NSF LIMITATIONS: None. FINDINGS: LIVER: Normal size. Cluster of cysts near the gallbladder fossa measuring about 6.1 x 2.8 cm. No solid masses. . No dilated ducts. CBD normal. SPLEEN: Normal size. No focal lesions. PANCREAS: 15 mm cyst uncinate process. No solid mass. No adjacent inflammation or peripancreatic flu id collections. Pancreatic duct not dilated. GALLBLADDER: No masses. No stones. No gallbladder wall thickening or pericholecystic fluid. ADRENAL GLANDS: No significant masses or asymmetry. RIGHT KIDNEY AND URETER: No masses. No hydronephrosis. LEFT KIDNEY AND URETER: No masses. No hydronephrosis. AORTA AND VESSELS: No aneurysm. RETROPERITONEUM: No retroperitoneal adenopathy, hemorrhage or masses. BOWEL: No visualized masses. No inflammation. No significant dilatation. ABDOMINAL WALL AND PERITONEUM: No hernias. No free fluid. BONES: No acute or significant findings. OTHER: No other significant finding. IMPRESSION: Hepatic and pancreatic cysts. No solid masses. TECHNICAL DOCUMENTATION: JOB ID: [id number] 2010 [employer]- All Rights Reserved Reading location - IP/workstation name: [email or web address]
--- NOTE | 2020-08-27 11:23 | RADIOLOGY REPORT (SQ) ---
EXAM DESCRIPTION: MRI ABDOMEN WITHOUT IMAGES COMPLETED DATE/TIME: 08/27/2020 8:42 am REASON FOR STUDY: PANCREATIC CYST/HEPATIC CYST COMPARISON: None. TECHNIQUE: Noncontrast MRCP. Source and MIP images reviewed. LIMITATIONS: None. FINDINGS: GALLBLADDER: Normal. INTRAHEPATIC DUCTS: Nondilated. EXTRAHEPATIC DUCTS: Common duct is normal caliber. No dilatation of the pancreatic duct. No ductal filling defects noted. PANCREAS: See separate report same date. LIVER, SPLEEN, KIDNEYS, ADRENALS: See separate report same date. VESSELS: No evidence of aneurysm. Grossly appropriate flow voids in the major vascular structures. LUNG BASES: Grossly clear. OTHER: No other significant finding. IMPRESSION: NORMAL HEPATOBILIARY SYSTEM. NO STONES OR COMMON DUCT ABNORMALITIES. TECHNICAL DOCUMENTATION: JOB ID: [id number] 2010 [employer]- All Rights Reserved Reading location - IP/workstation name: [email or web address]
--- OUTSIDE RECORDS SUMMARY | 2020-08-28 14:57 | XMS REPORT ---
:1965 [facility] [place] [address] [place] [id number] Care Team Providers Name Role Phone Mone PRESTON Attending Clinician Unavailable Allergies, Adverse Reactions, Alerts This patient has no known allergies or adverse reactions. Medications Ordered Filled Start Stop Current Ordering Indication Dosage Frequency Signature Comments Components Medication Medication Date Date Medication? Clinician (SIG) Name Name allopurinol No 1 Q1D allopurino 300 mg l 300 mg tablet Take tablet 1 tablet Take 1 every day tablet by oral every day route. by oral route. lisinopril No 1 Q1D lisinopril 40 mg 40 mg tablet Take tablet 1 tablet Take 1 every day tablet by oral every day route. by oral route. meloxicam No 1 Q1D meloxicam 15 mg 15 mg tablet Take tablet 1 tablet Take 1 every day tablet by oral every day route. by oral route. omeprazole No 1capsul Q1D omeprazole 20 mg e(s) 20 mg capsule,del capsule,de ayed layed release release Take 1 Take 1 capsule capsule every day every day by oral by oral route. route. Problems Condition Condition Condition Status Onset Resolution Last Treatin g Comments Name Details Category Date Date Treatment Clinician Date Gout Gout Problem Active 04-30 00:00: 00 Essential Essential Problem Active hypertensio Hypertensio 16 n n 00:00: 00 Gastroesoph Gastroesoph Problem Active ageal ageal 04-30 reflux Reflux 00:00: disease Disease 00 Hydrocele Hydrocele Problem Active 04-30 00:00: 00 Procedures Procedure Date / Time Performed Performing Clinician Jericho colindres Hydrocelectomy (Surg) 2019-05-13 00:00:00 Hernia Repair Results Test Description Test Time Test Comments Text Results Atomic Results Result Comments Urinalysis dipstick panel - Urine by Automated test strip 04-30 14:17:12 Test Item Value Reference Range Comments RESULT SG Reference Range: 1.000-1.030 (test code = RESULT SG Re ference 1.025 Range: 1.000-1.030) RESULT PH Reference Range: 5-9 (test code = RESULT PH Reference Range: 5-9) 6 RESULT DUNG Reference Range: NEG (test code = RESULT DUNG Referenc e Range: NEG NEG) RESULT NIT Reference Range: NEG (test code = RESULT NIT Referenc e Range: NEG NEG) RESULT PRO Reference Range: NEG (test code = RESULT PRO Referenc e Range: NEG NEG) RESULT GLU Reference Range: NORM (test code = RESULT GLU Referen ce Range: NORM NORM) RESULT KET Reference Range: NEG (test code = RESULT KET Referenc e Range: NEG NEG) RESULT BLD Reference Range: NEG (test code = RESULT BLD Referenc e Range: NEG NEG) Urinalysis dipstick panel - Urine by Automated test [id number] 14:17:12 Test Item Value Reference Range Comments RESULT SG Reference Range: 1.000-1.030 (test code = 1.025 RESULT SG Reference Range: 1.000-1.030) RESULT PH Reference Range: 5-9 (test code = RESULT PH 6 Reference Range: 5-9) RESULT DUNG Reference Range: NEG (test code = RESULT NEG DUNG Reference Range: NEG) RESULT NIT Reference Range: NEG (test code = RESULT NEG NIT Reference Range: NEG) RESULT PRO Reference Range: NEG (test code = RESULT NEG PRO Reference Range: NEG) RESULT GLU Reference Range: NORM (test code = RESULT NORM GLU Reference Range: NORM) RESULT KET Reference Range: NEG (test code = RESULT NEG KET Reference Range: NEG) RESULT BLD Reference Range: NEG (test code = RESULT NEG BLD Reference Range: NEG) Assessments Condition Name Status Diagnosis Date Treating Clinici an Hydrocele Active 2019-05-20 10:16:04 Hydrocele Active 2019-04-30 14:46:37 Encounters Start End Encounter Admission Attending Care Care Encounter Date/Time Date/Time Type Type Clinicians Facility Department ID 2019-06-18 2019-06-18 Natanael Richards [id number] 00:00:00 00:00:00 MD Mohan: [facility] [id number] [place] [address], Ph. [phone] 2019-05-20 2019-05-20 Natanael Richards [id number] 00:00:00 00:00:00 MD Mohan: [facility] [id number] [place] [address], Ph. [phone] 2019-05-13 2019-05-13 Outpatient EL MOHAN, [facility] [id number] 00:05:00 00:05:00 NATANAEL 40 2019-04-30 2019-04-30 Natanael Richards [id number] 00:00:00 00:00:00 MD Mohan: [facility] [id number] [place] [address], Ph. [phone] Payers Payer Name Policy Type Policy Number Effective Date Expiration D ate Social History Smoking Status Start Date Stop Date Never Smoker Vital Signs Vital Name Observation Time Observation Value Comments BP Diastolic 2019-05-20 00:00:00 72 mm[Hg] BP Systolic 2019-05-20 00:00:00 128 mm[Hg] Body Weight 2019-05-20 00:00:00 245 [lb_av] WEIGHT 2019-05-13 09:00:00 113.4 kg HEIGHT 2019-05-13 09:00:00 177.342282 cm WEIGHT 2019-05-13 00:05:00 113.4 kg HEIGHT 2019-05-13 00:05:00 177.237673 cm HEIGHT 2019-05-06 14:54:00 177.866135 cm WEIGHT 2019-05-06 14:54:00 113.4 kg BP Diastolic 2019-04-30 00:00:00 74 mm[Hg] BP Systolic 2019-04-30 00:00:00 116 mm[Hg] Body Weight 2019-04-30 00:00:00 248 [lb_av] Hospital Discharge Instructions 1. Hydrocele urinalysis, dipstick, auto Discussion Note We will proceed to hydrocelectomy as soon as possible. He understands that it will take at least 6 weeks to 2 months to recover. He understands there is also a small risk of recurrence. Patient educational handouts: No information available.
== END ==
LOC: RAD 07:25
PROVIDERS: ATTEND Physician Assistant
DX: K86.2 Cyst of pancreas (principal); K76.0 Fatty (change of) liver, not elsewhere classified
CPT/HCPCS: 82565; 74181; 74183; A9576